=== PATIENT | female | born 1990 | race Caucasian/White ===

== ENCOUNTER 2021-03-02 08:49 | Emergency (ER) | payer SELFPAY ==
[~2021-03-02] VITALS: Ht 162.6 cm; Wt 54.4 kg
== END 2021-03-02 09:45 | disposition home or self-care (01) ==
LOC: ER 09:15
DX: S90.812A Abrasion, left foot, initial encounter (principal); S90.811A Abrasion, right foot, initial encounter; T14.90XA Injury, unspecified, initial encounter; F17.210 Nicotine dependence, cigarettes, uncomplicated
CPT/HCPCS: 99282